=== PATIENT | male | born 1995 | race Hispanic/Latino ===

== ENCOUNTER 2018-05-05 12:32 | Emergency (ER) | payer OTHER, BC ==
[2018-05-05 12:59] VITALS: RESP 18; TEMP 98.4
[2018-05-05] MEDS ORDERED: Tdap Vaccine 0.5 ml Vial (10-64 yrs) IM ONE ×2 (13:12→13:30)
[2018-05-05] MEDS ORDERED: Lidocaine 1% Inj (20ml) INFIL ONE (13:12)
[2018-05-05] MEDS ORDERED: Lidocaine Hydrochloride 5 ML INJ ONE (13:30)
[2018-05-05] MEDS ORDERED: Bacitracin 500 Units/gm Oint Foilpak UD TOP ONE (14:11)
--- NOTE | 2018-05-05 14:13 | C.PDOC ---
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 Denies fever, numbness, tingling, and any other associated symptoms. Time Seen by Provider: 05/05/18 13:01 Chief Complaint (Nursing): Abnormal Skin Integrity History Per: Patient History/Exam Limitations: no limitations Onset/Duration Of Symptoms: Mins (prior to arrival.) Current Symptoms Are (Timing): Still Present Past Medical History Reviewed: Historical Data, Nursing Documentation, Vital Signs Vital Signs: Last Vital Signs Temp 98.4 F 05/05/18 12:53 Pulse 74 05/05/18 12:53 Resp 18 05/05/18 12:53 BP 124/74 05/05/18 12:53 Pulse Ox 99 05/05/18 12:53 Family History: States: Unknown Family Hx - Social History Hx Alcohol Use: Yes Hx Substance Use: No - Immunization History Hx Tetanus Toxoid Vaccination: No Hx Influenza Vaccination: No Hx Pneumococcal Vaccination: No Review Of Systems Constitutional: Negative for: Fever Skin: Positive for: Other (laceration to the left thumb.) Neurological: Negative for: Weakness, Numbness, Incoordination Physical Exam - Physical Exam Appears: Well, Non-toxic, No Acute Distress Skin: Warm, Dry, Other (left thumb laceration: 1.5 cm.) Head: Atraumatic, Normacephalic Eye(s): bilateral: Normal Inspection Extremity: Normal ROM (to the left hand digits.), Capillary Refill (less than 2 seconds.), No Deformity (to the left hand.) Pulses: Left Radial: Normal, Right Radial: Normal Neurological/Psych: Oriented x3, Normal Speech, Normal Motor, Normal Sensation, Normal Reflexes ED Course And Treatment O2 Sat by Pulse Oximetry: 99 (RA) Pulse Ox Interpretation: Normal Procedure: Wound Repair - Procedure Procedure: Wound Repair: left thumb laceration - Performed by Performed by: Mid-level Provider - Indications Indication(s):: Laceration - Location Location:: Left, Hand Finger:: Thumb - Anesthetic Technique Local/Regional Anesthetic:: Lidocaine 1% - Complexity Complexity:: Simple (one layer) - Wound repair method Sutures:: # (x3 sutures. interrupted. ) Medical Decision Making Medical Decision Making: Plan: -Adacel Tylenol Progress/Update: Patient stable for discharge home. Prescribed Motrin. Disposition Counseled Patient/Family Regarding: Diagnosis, Need For Followup, Rx Given - Disposition Disposition: HOME/ ROUTINE Disposition Time: 14:11 Condition: GOOD Additional Instructions: Keep clean and dry.Suture removal in 7-10 days. Change dressing daily and apply antibiotic ointment. Return to ER for any signs of infections. Prescriptions: Ibuprofen [Motrin] 600 mg PO TID #30 tab Instructions: Laceration Repair With Stitches (DC) Forms: General Discharge Instructions, [facility] (Icelandic), Work Excuse - Clinical Impression Clinical Impression: Laceration of left thumb - PA / MANAGER ASSURANCE / Resident Statement MD/DO has reviewed & agrees with the documentation as recorded. - Scribe Statement The provider has reviewed the documentation as recorded by the Scribe (Alecia Bishop) All medical record entries made by the Scribe were at my direction and personally dictated by me. I have reviewed the chart and agree that the record accurately reflects my personal performance of the history, physical exam, medical decision making, and the department course for this patient. I have also personally directed, reviewed, and agree with the discharge instructions and disposition.
[2018-05-05] MEDS ORDERED: Bacitracin 500 Units/gm Oint Foilpak UD ONE (14:19)
[2018-05-05 14:41] VITALS: BP 124/72; PULSE 68
[2018-05-05 14:45] VITALS: O2SAT 99
== END 2018-05-05 14:41 | disposition home or self-care (01) ==
LOC: C.ER 12:32
DX: S61.012A Laceration without foreign body of left thumb without damage to nail, initial encounter (principal); W27.8XXA Contact with other nonpowered hand tool, initial encounter; Y92.89 Other specified places as the place of occurrence of the external cause; Y99.0 Civilian activity done for income or pay; Z23 Encounter for immunization

== ENCOUNTER 2018-05-12 17:53 | Emergency (ER) | payer OTHER, BC ==
[2018-05-12 18:07] VITALS: BP 100/62; PULSE 72; RESP 20; TEMP 98.2; O2SAT 99
--- NOTE | 2018-05-12 18:36 | C.PDOC ---
History Of Present Illness 22 y/o male presents to the ER for scheduled left thumb suture removal. Pt states that he had a laceration which was closed in [facility] 7 days ago. Pt denies having pain, fever, chills, wound redness and discharge. Time Seen by Provider: 05/12/18 18:11 Chief Complaint (Nursing): Suture/Staple Removal History Per: Patient History/Exam Limitations: no limitations Past Medical History Reviewed: Historical Data, Nursing Documentation, Vital Signs Vital Signs: Last Vital Signs Temp 98.2 F 05/12/18 18:03 Pulse 72 05/12/18 18:03 Resp 20 05/12/18 18:03 BP 100/62 05/12/18 18:03 Pulse Ox 99 05/12/18 18:03 - Medical History PMH: No Chronic Diseases Surgical History: No Surg Hx Family History: States: No Known Family Hx - Social History Hx Alcohol Use: Yes Hx Substance Use: No - Immunization History Hx Tetanus Toxoid Vaccination: Yes Hx Influenza Vaccination: No Hx Pneumococcal Vaccination: No Review Of Systems Except As Marked, All Systems Reviewed And Found Negative. Constitutional: Negative for: Fever, Chills Musculoskeletal: Negative for: Hand Pain Physical Exam - Physical Exam Appears: Well, Non-toxic, No Acute Distress Skin: Normal Color, Warm, Other (left thumb, laceration over dorsal aspect Left 1st distal phalanx closed with sutures#3, clean, dry, intact. No cellulitis) Head: Atraumatic, Normacephalic Eye(s): bilateral: Normal Inspection Extremity: Normal ROM (Left hand), No Tenderness, No Deformity, No Swelling Neurological/Psych: Oriented x3, Normal Speech ED Course And Treatment O2 Sat by Pulse Oximetry: 99 (RA) Pulse Ox Interpretation: Normal Progress Note: Left hand: sutures#3 removed from lef tthumb without difficulty. Wound appears well healed, no cellulitis. FAROM, no neurovascular deficits. Pt avdised. ref. to f/u with PMD as need for further eval Disposition Counseled Patient/Family Regarding: Diagnosis, Need For Followup - Disposition Referrals: [facility] [Outside] Disposition: HOME/ ROUTINE Disposition Time: 18:30 Condition: STABLE Instructions: Stitches Removal Forms: [employer] (Wolof) - Clinical Impression Clinical Impression: Removal of suture - PA / SAFETY AIDE / Resident Statement / has reviewed & agrees with the documentation as recorded. - Scribe Statement The provider has reviewed the documentation as recorded by the Scribe Mary Fernandez Provider Attestation All medical record entries made by the [place] were at my direction and personally dictated by me. I have reviewed the chart and agree that the record accurately reflects my personal performance of the history, physical exam, medical decision making, and the department course for this patient. I have also personally directed, reviewed, and agree with the discharge instructions and disposition.
== END 2018-05-12 18:54 | disposition home or self-care (01) ==
LOC: C.ER 17:53
DX: S61.012D Laceration without foreign body of left thumb without damage to nail, subsequent encounter (principal)